=== PATIENT | male | born 1990 | race Caucasian/White ===

== ENCOUNTER 2020-11-01 15:00 | Emergency (ER) | payer BC ==
[2020-11-01] MEDS ORDERED: diphenhydrAMINE 50 MG/ML VIAL ONE (15:41)
[2020-11-01] MEDS ORDERED: Ketorolac Tromethamine 30 MG/ML VIAL ONE (15:42)
[2020-11-01] MEDS ORDERED: Metoclopramide HCl 10 MG/2 ML VIAL ONE (15:42)
== END 2020-11-01 17:36 | disposition home or self-care (01) ==
LOC: CSHERS 15:00
DX: G43.909 Migraine, unspecified, not intractable, without status migrainosus (principal); Z87.891 Personal history of nicotine dependence
CPT/HCPCS: 96365; 96375; J1200; J1885; J2765